=== PATIENT | male | born 1990 | race Caucasian/White ===

== ENCOUNTER 2017-01-11 03:40 | Emergency (ER) | payer BC ==
[~2017-01-11] VITALS: Ht 182.9 cm; Wt 68.0 kg
--- NOTE | 2017-01-11 04:00 | NUR ---
PT BIB FRIEND, PT AMBULATORY TO ER BED 2 PT C/O NAUSEA VOMITNG AND ANXIETY X 2 HOURS. 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 PT AOX3 RR EVEN AND UNLABORED. NO SOB NOTED. NAD NOTED. NO NVD AT THIS TIME. PT GOWNED AND PLACED ON MONITOR WAITING FOR MD LOVE.
--- NOTE | 2017-01-11 04:44 | NUR ---
DR. JAEGER AT BEDSIDE FOR EVAL.
[2017-01-11] MEDS ORDERED: ONDANSETRON HCL/PF 4 MG/2 ML VIAL ONE (04:45)
[2017-01-11] MEDS ORDERED: ONDANSETRON HCL/PF 4 MG/2 ML VIAL IM ONE (05:00)
--- NOTE | 2017-01-11 06:00 | NUR ---
PT PASSED PO CHALLENGE. DR. JAEGER MADE AWARE.
--- NOTE | 2017-01-11 06:02 | NUR ---
Patient discharged to home in stable condition. Written and verbal after care instructions given. Patient verbalizes understanding of instruction. ambulatory with a steady gait
[2017-01-11 06:03] VITALS: BP 128/72
== END 2017-01-11 06:04 | disposition home or self-care (01) ==
LOC: ER 03:40
DX: F41.9 Anxiety disorder, unspecified (principal); R11.2 Nausea with vomiting, unspecified; J45.909 Unspecified asthma, uncomplicated
CPT/HCPCS: A4606; J2405; Z7610